=== PATIENT | male | born 1960 | race Caucasian/White ===

== ENCOUNTER 2020-05-16 07:39 | Outpatient (CLI) | payer BC, SELFPAY ==
[2020-05-17 14:53] LABS: SARS-CoV-2 RNA PCR Negative
== END 2020-05-16 07:40 | disposition home or self-care (01) ==
PROVIDERS: PCP Internal Medicine; Visit Provider Internal Medicine
DX: Z20.828 Contact with and (suspected) exposure to other viral communicable diseases (principal)
CPT/HCPCS: 87635; C9803; U0003

== ENCOUNTER 2020-05-31 10:26 | Outpatient (CLI) | payer BC, SELFPAY ==
[2020-05-31 11:16] LABS: SARS-CoV-2 Ag Positive (Negative)
[2020-05-31 11:18] LABS: Influenza Control Valid (Valid)
== END 2020-05-31 10:27 | disposition home or self-care (01) ==
LOC: CHSLAB 10:29
PROVIDERS: PCP Internal Medicine; Visit Provider Internal Medicine
DX: U07.1 COVID-19 (principal); R50.9 Fever, unspecified; R53.83 Other fatigue
CPT/HCPCS: 87426; 87804

== ENCOUNTER 2020-09-05 10:52 | Outpatient (RCR) | payer BC, SELFPAY ==
--- NOTE | 2020-09-05 12:29 | PTOPEVAL ---
Thank you for referring Nazario Mascorro to [facility][Note 3].? The patient is scheduled to be seen for therapy? _3___x/week for 12 visits. Please review, sign, date and return this plan of care QAMAR. I agree with and certify that the following plan of care is medically necessary. Referring Physician Date Admitting Provider: Attending Provider: Daniela Freeman MD Referring Provider: *PT Outpatient Evaluation Start: 09/05/20 10:53 Freq: Status: Active Protocol: Document 09/05/20 10:53 ACR (Rec: 09/05/20 12:00 ACR [id number]) Therapy Assessment Status Assessment Status Assessment Status Evaluation Evaluation Information Problem Diagnosis gait instability Onset 06/07/20 Subjective Information Patient states his back has Query Text:As Reported By Patient/ been bothering him for a long Family time. He has gotten multiple surgeries over the years. He states that he is unable stand tall because he feels weak and it hurts his back too much and now if he moves too much then he has too take frequent breaks. He is unable to walk and stand for prolonged periods of time. Patient states that his goal for therapy is to get his legs stronger. He states that he continues to try to walk more, but is unable to walk across his yard and cannot do it at this time. Patient states that he can maybe walk 100ft before he needs to take a break. Prior Level of Function Activity Level (Last 3 Months) Occupation retired Hand Dominance Right Activity of Daily Living Ability Independent Indoor/Home Mobility Independent Community Mobility Independent Stairs Ability Independent Functional Cognition (Planning, Shopping Independent , Taking Medications) Cooking Yes Cleaning Yes Laundry Yes Shopping Yes Driving Yes Pain Assessment Timing of Pain Assessment Timing of Pain Assessment Pre-Treatment Pain Scale Pain Scale Used Numeric (1 - 10) Self Report Pain Assessment Bilateral Leg(s) Reported Pain Level 4 Lower Back
--- NOTE | 2020-09-14 09:10 | PCPTNOTE ---
patient called and cancelled appt today. LAVON
--- NOTE | 2020-10-06 14:02 | PTOPEVAL ---
Thank you for referring Nazario Mascorro to [facility].? The patient is scheduled to be seen for therapy? ____x/week for ___ weeks. Please review, sign, date and return this plan of care QAMAR. I agree with and certify that the following plan of care is medically necessary. Referring Physician Date Admitting Provider: Attending Provider: Daniela Freeman MD Referring Provider: *PT Outpatient Evaluation Start: 09/05/20 10:53 Freq: Status: Active Protocol: Document 10/06/20 12:55 ACR (Rec: 10/06/20 14:02 ACR [id number]) Therapy Assessment Status Assessment Status Assessment Status Discharge Evaluation Information Problem Diagnosis gait instability Onset 06/07/20 Subjective Information Patient states that he Query Text:As Reported By Patient/ believes therapy has helped a Family bit, but with his back in the condition it is in, he believes he will always walk poorly. He also feels that he is able to get up easier and do his exercises easier, but some days he is unable to get out of bed because of his pain . Pain Assessment Timing of Pain Assessment Timing of Pain Assessment Pre-Treatment Pain Scale Pain Scale Used Numeric (1 - 10) Self Report Pain Assessment Bilateral Leg(s) Reported Pain Level 5 Greatest Pain Intensity 8 Lower Back Reported Pain Level 5 Greatest Pain Intensity 8 Pain Score Pain Score 5,5: Self Report Interventions Used Interventions Used By Clinicians Activity or ADL's,Education, Exercise Lower Extremity Muscle Strength Testing General Lower Extremity Strength Gross Lower Extremity Strength knee extension: R- 4 L- 4+ knee flexion: R- 4+ L-5 hip flexion: R- 3+ L- 4 hip abduction: R- 4+ L-5 Balance Assessment Tinetti Balance Assessment Sitting Balance Steady, safe Ability to Arise Able, uses arms to help Attempts to Arise Arises on 1st attempt Immediate Standing Balance Steady with support Standing Balance Narrow stance w/o support Nudged Response Steady Standing with Eyes Closed Steady Step Pattern Turning 360 Degrees Continuous steps Stability Turning 360 Degrees Steady Sitting Down Uses arms or unsteady Initiation of Gait No hesitancy Right Foot Step Length Does pass stance foot Right Foot Step Height
== END 2020-10-06 14:04 | disposition home or self-care (01) ==
LOC: CHSPT 10:52
PROVIDERS: PCP Internal Medicine; Visit Provider Internal Medicine
DX: M54.5 Low back pain (principal); R26.81 Unsteadiness on feet
CPT/HCPCS: 97110; 97112; 97116; 97162; 97530